=== PATIENT | male | born 1995 | race Two or more races ===

== ENCOUNTER 2018-06-22 20:02 | Emergency (ER) | payer MEDICAID ==
[~2018-06-22] VITALS: Ht 177.8 cm; Wt 57.6 kg
[2018-06-22 21:00] VITALS: BP 105/64
[2018-06-22] MEDS ORDERED: cefTRIAXone SOD 1,000 MG VL IM ONE (21:00)
[2018-06-22] MEDS ORDERED: AZITHROMYCIN 250 MG TAB PO ONE (21:00)
[2018-06-22] MEDS ORDERED: LIDOCAINE 2% (LOCAL ANESTH.) PF 5ml SDV ONE (21:10)
[2018-06-22] MEDS ORDERED: LIDOCAINE 2% (LOCAL ANESTH.) PF 5ml SDV IJ ONE (21:15)
== END 2018-06-22 21:26 | disposition home or self-care (01) ==
LOC: ER 20:02
DX: N39.0 Urinary tract infection, site not specified (principal)
CPT/HCPCS: 96372; 99283; J0696; J2001